=== PATIENT | male | born 1940 | race Hispanic/Latino ===

== ENCOUNTER → 2018-09-04 | Outpatient (CLI) | payer OTHER | END | disposition home or self-care (01) | LOC: SHCH 10:46 | PROVIDERS: ATTEND Internal Medicine Cardiovascular Disease | DX: I65.23 Occlusion and stenosis of bilateral carotid arteries (principal); R09.89 Other specified symptoms and signs involving the circulatory and respiratory systems | CPT/HCPCS: 93880 ==

== ENCOUNTER → 2018-09-14 | Outpatient (CLI) | payer OTHER | END | disposition home or self-care (01) | LOC: SHCH 16:10 | PROVIDERS: ATTEND Internal Medicine Cardiovascular Disease | DX: I10 Essential (primary) hypertension (principal); R01.1 Cardiac murmur, unspecified | CPT/HCPCS: 93306 ==

== ENCOUNTER 2020-05-08 12:55 | Inpatient (IN) | payer OTHER ==
[~2020-05-08] VITALS: Ht 162.6 cm; Wt 56.1 kg
[2020-05-08 14:11] LABS: BASOPHILS % (AUTO) 0.5 % (0.0-5.0); EOSINOPHILS % (AUTO) 5.7 % (0.0-8.0); HEMATOCRIT 25.6 % (42-54); MEAN CORPUSCULAR HEMOGLOBIN 23.3 pg (27.0-33.0); MEAN CORPUSCULAR HGB CONC 30.1 g/dL (32.0-36.0); MEAN CORPUSCULAR VOLUME 77.6 fL (79-99); MONOCYTES % (AUTO) 8.3 % (3.0-13.0); NEUTROPHILS % (AUTO) 59.3 % (40.0-77.0); PLATELET COUNT (AUTO) 347 K/uL (130-400); WHITE BLOOD COUNT (AUTO) 5.8 K/uL (4.8-10.8)
[2020-05-08 14:19] LABS: POTASSIUM 4.2 mmol/L (3.5-5.1)
[2020-05-08 14:20] LABS: INR 0.9 (0.85-1.15); PARTIAL THROMBOPLASTIN TIME 30.8 SEC (26.3-35.5); PROTHROMBIN TIME 9.8 SEC (9.6-11.6)
[2020-05-08 14:24] LABS: ALBUMIN 4.1 g/dL (3.5-5.0); BILIRUBIN,TOTAL 0.2 mg/dL (0.2-1.0); TOTAL PROTEIN, SERUM 8.8 g/dL (6.0-8.3)
[2020-05-08 14:50] LABS: RETICULOCYTE % (AUTO) 0.38 % (0.42-2.23)
[2020-05-08 15:03] LABS: BAND NEUTROPHILS % (MANUAL) 4 % (0-2); EOSINOPHILS % (MANUAL) 5 % (1-6); LYMPHOCYTES % (MANUAL) 19 % (22-44); MAN.DIFF COMMENT-IMPRESSION MANUAL DIFFERENTIAL; MONOCYTES % (MANUAL) 5 % (2-9); REACTIVE LYMPHOCYTES 2 % (0-0); SEGMENTED NEUTROPHILS % 65 % (40-70)
[2020-05-08 15:06] LABS: PLATELET MORPHOLOGY COMMENT LARGE PLTS PRESENT
[2020-05-08] MEDS ORDERED: SODIUM CHLORIDE 0.9% 1000ML 1,000 ML IV SCH (17:45)
[2020-05-08] MEDS ORDERED: ONDANSETRON HCL 4 MG/2 ML VIAL IV PRN (17:45)
[2020-05-08] MEDS ORDERED: ACETAMINOPHEN 325 MG TAB PO PRN ×2 (17:45)
[2020-05-08] MEDS ORDERED: HYDRALAZINE HCL 20 MG/ML VIAL IV PRN (18:00)
[2020-05-08 18:14] LABS: % IRON SATURATION 3.9 % (30-44)
[2020-05-08] MEDS ORDERED: AMLODIPINE BESYLATE 5 MG TAB PO SCH (18:15)
[2020-05-08 18:22] LABS: ALBUMIN 3.7 g/dL (3.5-5.0); BILIRUBIN,TOTAL 0.2 mg/dL (0.2-1.0); CREATININE 1.8 mg/dL (0.5-1.5); POTASSIUM 4.4 mmol/L (3.5-5.1)
[2020-05-08] MEDS ORDERED: FAMOTIDINE/PF 20 MG/2 ML VIAL IV ONE (21:20)
[2020-05-08] MEDS ORDERED: SODIUM CHLORIDE 0.9% 1000ML 1,000 ML IV ONE (21:21)
[2020-05-08 21:55] VITALS: BP 152/73
[2020-05-08] MEDS ORDERED: VITAD50000 PO (22:47)
[2020-05-08] MEDS ORDERED: FOLI0.8T22 PO (22:47)
[2020-05-08] MEDS ORDERED: ATOR40TA71 PO (22:47)
[2020-05-08] MEDS ORDERED: AMLO-258 PO (22:47)
[2020-05-08] MEDS ORDERED: BENA20TA10 PO (22:47)
[2020-05-09] VITALS: BP 115/54
[2020-05-09 03:33] LABS: BASOPHILS % (AUTO) 0.7 % (0.0-5.0); EOSINOPHILS % (AUTO) 11.1 % (0.0-8.0); HEMATOCRIT 21.7 % (42-54); LYMPHOCYTES % (AUTO) 34.6 % (21.0-51.0); MEAN CORPUSCULAR HEMOGLOBIN 22.8 pg (27.0-33.0); MEAN CORPUSCULAR HGB CONC 29.5 g/dL (32.0-36.0); MEAN CORPUSCULAR VOLUME 77.2 fL (79-99); MONOCYTES % (AUTO) 10.4 % (3.0-13.0); PLATELET COUNT (AUTO) 282 K/uL (130-400); RED BLOOD CELL COUNT(AUTO) 2.81 MIL/uL (4.50-6.20); RED CELL DISTRIBUTION WIDTH 20.1 % (11.0-15.5); WHITE BLOOD COUNT (AUTO) 4.1 K/uL (4.8-10.8)
[2020-05-09 03:49] LABS: ALBUMIN 3.2 g/dL (3.5-5.0); BILIRUBIN,TOTAL 0.2 mg/dL (0.2-1.0); CREATININE 1.7 mg/dL (0.5-1.5); POTASSIUM 4.4 mmol/L (3.5-5.1); TOTAL PROTEIN, SERUM 7.1 g/dL (6.0-8.3)
[2020-05-09 04:00] VITALS: BP 108/53
[2020-05-09] MEDS ORDERED: SODIUM CHLORIDE 0.9% 250 ML IV ONE (05:09)
--- NOTE | 2020-05-09 07:30 | NUR ---
PATIENT COMPLETED 1ST OF 2 UNITS OF PRBC'S WITHOUT ADVERSE REACTION. V/S STABLE. WILL CONTINUE TO MONITOR.
[2020-05-09 08:00] VITALS: BP 146/73
[2020-05-09] MEDS ORDERED: COMPOUND IV MISC 1 EACH IVSOLN MISC PRN (09:15)
[2020-05-09] MEDS: IRON SUCROSE COMPLEX 300 MG in SODIUM CHLORIDE 0.9% 50 ML IV SCH (10:35)
[2020-05-09] MEDS: FAMOTIDINE/PF 20 MG/2 ML VIAL IV SCH (10:35)
[2020-05-09 12:00] VITALS: BP 143/61
[2020-05-09 16:00] VITALS: BP 158/66
[2020-05-09 20:24] VITALS: BP 160/64
[2020-05-10 00:28] VITALS: BP 142/55
[2020-05-10 01:20] LABS: HEMATOCRIT 29.3 % (42-54)
[2020-05-10 04:24] VITALS: BP 132/52
[2020-05-10 05:25] LABS: BASOPHILS % (AUTO) 0.8 % (0.0-5.0); EOSINOPHILS % (AUTO) 10.1 % (0.0-8.0); HEMATOCRIT 29.8 % (42-54); LYMPHOCYTES % (AUTO) 25.8 % (21.0-51.0); MEAN CORPUSCULAR HEMOGLOBIN 25.1 pg (27.0-33.0); MEAN CORPUSCULAR HGB CONC 31.9 g/dL (32.0-36.0); MEAN CORPUSCULAR VOLUME 78.8 fL (79-99); MONOCYTES % (AUTO) 10.5 % (3.0-13.0); NEUTROPHILS % (AUTO) 52.6 % (40.0-77.0); PLATELET COUNT (AUTO) 256 K/uL (130-400); RED BLOOD CELL COUNT(AUTO) 3.78 MIL/uL (4.50-6.20); WHITE BLOOD COUNT (AUTO) 4.8 K/uL (4.8-10.8)
[2020-05-10 05:49] LABS: ALBUMIN 3.2 g/dL (3.5-5.0); BILIRUBIN,TOTAL 0.9 mg/dL (0.2-1.0); CREATININE 1.7 mg/dL (0.5-1.5); POTASSIUM 3.9 mmol/L (3.5-5.1); TOTAL PROTEIN, SERUM 7.1 g/dL (6.0-8.3)
[2020-05-10 08:21] VITALS: BP 144/58
[2020-05-10] MEDS ORDERED: TAMSULOSIN HCL 0.4 MG CAP.ER.24H PO SCH (09:00)
[2020-05-10] MEDS: FAMOTIDINE/PF 20 MG/2 ML VIAL IV SCH (09:03)
[2020-05-10] MEDS: IRON SUCROSE COMPLEX 300 MG in SODIUM CHLORIDE 0.9% 50 ML IV SCH (09:03)
[2020-05-10] MEDS ORDERED: TAMS-1 PO (10:40)
[2020-05-10 11:19] VITALS: BP 135/65
--- NOTE | 2020-05-10 11:40 | NUR ---
DR. JULIA RICHADRSON ROUNDING NOW ON PATIENT TO EXPLAIN DISCHARGE PLAN. MD ALSO SIGNED RX FOR DISCHARGE. Addendum: 05/10/20 at 1312 by CHELSI GONZALES RN RN AT THIS TIME I ALSO ASKED DR. DUMONT IF HE WANTED ME TO OBTAIN OKAY TO DISCHARGE ORDER FROM NEPHROLOGY CONSULT AND DR. DUMONT REPLIED NO.
--- NOTE | 2020-05-10 12:55 | NUR ---
PRESCRIPTION PRINTED AND SIGNED RX PROVIDED AT TIME OF DISCHARGE. PATIENT ASKED FOR ME TO CALL IN RX TO HIS PHARMACY. CALLED IN RX FOR FLOMAX 0.4MG PO HS #30 DAYS TO PATIENTS PHARMACY "[facility]" IN [place], [place] [phone] AND ALSO FAXED [phone] TO PHARMACY.
--- NOTE | 2020-05-10 14:06 | NUR ---
CM NOTE/IA UNSUCCESSFUL PATIENT DISCHARGED HOME, UNABLE TO DO IA. NO NOTED NEEDS PER NURSING STAFF Addendum: 05/10/20 at 1407 by GARCIA JEFF RN CM Amended: Links added.
--- NOTE | 2020-05-11 12:55 | NUR ---
Transitional Care - Post Discharge Note Spoke with patient at number listed. As per Mr Mills, he is doing well. 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 No complaints of pain, SOB, N/V/D, or fevers reported. Addendum: 05/11/20 at 1258 by LEONORA SARGENT Amended: Links added. Addendum: 05/11/20 at 1301 by LEONORA SARGENT Patient also aware of appointment with Dr Maritza Feng on May 19. Also intends to keep appointment.
== END 2020-05-10 12:45 | disposition home or self-care (01) | DRG 683 ==
LOC: EDH 12:55 → EDHIP 17:34 → 3BH 21:56
PROVIDERS: ADMIT Family Medicine; ATTEND Family Medicine
PROC: 30233N1 Transfusion of Nonautologous Red Blood Cells into Peripheral Vein, Percutaneous Approach (ICD-10-PCS; principal; 2020-05-09)
DX: I12.9 Hypertensive chronic kidney disease with stage 1 through stage 4 chronic kidney disease, or unspecified chronic kidney disease (principal); N17.9 Acute kidney failure, unspecified; R63.4 Abnormal weight loss; F17.210 Nicotine dependence, cigarettes, uncomplicated; D63.1 Anemia in chronic kidney disease; I25.10 Atherosclerotic heart disease of native coronary artery without angina pectoris; N18.9 Chronic kidney disease, unspecified; N40.0 Benign prostatic hyperplasia without lower urinary tract symptoms; R62.7 Adult failure to thrive; N20.0 Calculus of kidney; Z68.21 Body mass index [BMI] 21.0-21.9, adult
CPT/HCPCS: 36415; 36430; 71045; 74176; 76770; 80053; 82270; 82550; 83540; 83550; 84165; 84466; 84484; 85014; 85018; 85025; 85045; 85610; 85730; 86850; 86900; 86901; 86923; 93005; G0378; J1756; J3490; J7030; J7050; P9016

== ENCOUNTER → 2020-10-11 | Outpatient (CLI) | payer OTHER ==
[~2020-10-11] MED LIST: AMLO-258 PO; ATOR40TA71 PO; BENA20TA10 PO; FOLI0.8T22 PO; TAMS-1 PO; VITAD50000 PO
== END | disposition home or self-care (01) ==
LOC: SHCH 11:09
PROVIDERS: ATTEND Internal Medicine Cardiovascular Disease
DX: I11.9 Hypertensive heart disease without heart failure (principal); I34.0 Nonrheumatic mitral (valve) insufficiency; E78.5 Hyperlipidemia, unspecified; F17.210 Nicotine dependence, cigarettes, uncomplicated; I35.0 Nonrheumatic aortic (valve) stenosis; I73.9 Peripheral vascular disease, unspecified; I77.1 Stricture of artery; R55 Syncope and collapse
CPT/HCPCS: 93306; 93356; 93930